=== PATIENT | male | born 1970 | race Caucasian/White ===

== ENCOUNTER 2020-05-22 09:08 | Emergency (ER) | payer MEDICAID, OTHER ==
[~2020-05-22] VITALS: Ht 190.5 cm; Wt 90.7 kg
--- NOTE | 2020-05-22 09:13 | NUR ---
[id number] and lapd, in custody, overdose on fentanyl/heroin, for OTB, narcan 2mg given on scene. On room air, breathing evenly and unlabored. Kept comfortable, will continue to monitor accordingly.
[2020-05-22 10:10] VITALS: BP 129/81
--- NOTE | 2020-05-22 10:10 | NUR ---
patient left via ambulatory with steady gait accompanied by [employer] in custody, in no distress.
== END 2020-05-22 10:10 ==
LOC: ER 09:08
DX: T40.1X1A Poisoning by heroin, accidental (unintentional), initial encounter (principal); Z88.1 Allergy status to other antibiotic agents; Y92.89 Other specified places as the place of occurrence of the external cause